=== PATIENT | female | born 1950 | race Caucasian/White ===

== ENCOUNTER → 2018-03-03 | Emergency (ER) | payer OTHER ==
[~2018-03-03] MED LIST: CELEBREX100 MG PO; ULTRACET PO
== END | disposition left against medical advice (07) ==
LOC: ER 22:17
DX: Z53.20 Procedure and treatment not carried out because of patient's decision for unspecified reasons (principal)

== ENCOUNTER 2018-07-30 09:48 | Outpatient (CLI) | payer OTHER | END 2018-07-30 10:01 | disposition home or self-care (01) | LOC: SONOGRAMA 09:48 | DX: E04.1 Nontoxic single thyroid nodule (principal) ==

== ENCOUNTER 2019-06-05 08:37 | Outpatient (CLI) | payer OTHER | END 2019-06-05 08:39 | disposition home or self-care (01) | LOC: SONOGRAMA 08:37 | DX: E04.1 Nontoxic single thyroid nodule (principal) ==

== ENCOUNTER 2020-05-17 08:24 | Outpatient (CLI) | payer OTHER | END 2020-05-17 08:48 | disposition home or self-care (01) | LOC: SONOGRAMA 08:24 | PROVIDERS: ATTEND Pathology Anatomic Pathology | DX: D34 Benign neoplasm of thyroid gland (principal); E04.1 Nontoxic single thyroid nodule; E04.8 Other specified nontoxic goiter ==